=== PATIENT | female | born 2000 | race Caucasian/White ===

== ENCOUNTER 2021-07-29 00:24 | Emergency (ER) | payer OTHER ==
[~2021-07-29] VITALS: Ht 165.1 cm; Wt 65.0 kg
[2021-07-29 00:52] LABS: BILIRUBIN,URINE NEGATIVE (NEGATIVE); CLARITY,URINE SL CLOUDY; COLOR,URINE YELLOW; GLUCOSE, URINE (UA) NEGATIVE (NEGATIVE); KETONES,URINE NEGATIVE (NEGATIVE); LEUKOCYTE ESTERASE ,URINE 2+ (NEGATIVE); NITRITE,URINE NEGATIVE (NEGATIVE); PROTEIN,URINE NEGATIVE (NEGATIVE)
[2021-07-29 00:58] LABS: BACTERIA,URINE TRACE /HPF; WBC,URINE 0-2 /HPF
[2021-07-29 00:59] LABS: AMORPHOUS SEDIMENT,UR LARGE AMOR URATES /LPF
[2021-07-29] MEDS ORDERED: KETOROLAC 30 MG/ML VIAL IVP STA (01:09)
[2021-07-29] MEDS ORDERED: LACTATED RINGERS 1,000 ML IV ONE (01:15)
[2021-07-29 01:35] LABS: BASOPHILS # (AUTO) 0.1 10^3/uL (0.0-0.1); BASOPHILS % (AUTO) 0 % (0-10); EOSINOPHILS # (AUTO) 0.1 10^3/uL (0.0-0.3); EOSINOPHILS % (AUTO) 0 % (0-10); HEMATOCRIT 42 % (35-52); LYMPHOCYTES # (AUTO) 2.3 10^3/uL (1.0-4.0); LYMPHOCYTES % (AUTO) 13 % (12-44); MEAN CORPUSCULAR HEMOGLOBIN 31 pg (25-34); MEAN CORPUSCULAR HGB CONC 33 g/dL (32-36); MEAN CORPUSCULAR VOLUME 95 fL (80-99); MEAN PLATELET VOLUME 9.6 fL (9.0-12.2); MONOCYTES # (AUTO) 1.4 10^3/uL (0.0-1.0); MONOCYTES % (AUTO) 8 % (0-12); NEUTROPHILS # (AUTO) 13.5 10^3/uL (1.8-7.8); NEUTROPHILS % (AUTO) 78 % (42-75); PLATELET COUNT 247 10^3/uL (130-400); WHITE BLOOD COUNT 17.4 10^3/uL (4.3-11.0)
[2021-07-29 01:43] LABS: ALBUMIN 4.4 GM/DL (3.2-4.5); POTASSIUM 3.8 MMOL/L (3.6-5.0)
[2021-07-29 01:44] LABS: CALCIUM 9.5 MG/DL (8.5-10.1)
[2021-07-29 01:45] LABS: TOTAL PROTEIN 7.8 GM/DL (6.4-8.2)
[2021-07-29 01:47] LABS: BILIRUBIN,TOTAL 1.5 MG/DL (0.1-1.0)
[2021-07-29 01:49] LABS: CREATININE SERUM 0.85 MG/DL (0.60-1.30)
--- NOTE | 2021-07-29 01:59 | ED Abdominal Pain ---
General Chief Complaint: Abdominal/GI Problems Stated Complaint: R SIDE / SHOULDER / LOWER ABD PAIN Nursing Triage Note: Pt arrival to ER from home wiht complaint of Right sided abdominal pain/Should Pain since this AM. Pt states that the pain comes and goes. Denies pain or discomfort with urination. Denies trauma or injury. Pain at a 5/10 currently and described as a discomfort. Source of Information: Patient History of Present Illness Date Seen by Provider: Jul 29, 2021 Time Seen by Provider: 00:42 Initial Comments PT ARRIVES VIA POV C/O "EXTREME PAIN" TO RIGHT SIDE OF ABDOMEN--MOSTLY TO RIGHT UPPER QUADRANT, RADIATES TO RIGHT FLANK, AND HAS SOME IN RLQ. ALSO HAS PAIN TO RIGHT SHOULDER/SCAPULA/TRAPEZIUS AREA PAIN BEGAN 0800 ON WAKING ON Friday07/28/21 PAIN IS CONSTANT, BUT VARIES IN INTENSITY. PAIN IS WORSE IF LAYING ON ABDOMEN OR RIGHT SIDE OR ON BACK. BETTER IF LAYING ON LEFT SIDE RATES 5/10 NO NAUSEA/VOMITING PT HAD BM ON FRIDAY, BUT HAS BEEN CONSTIPATED STATES SHE HAD "CHILLS" DURING THE DAY, BUT NEVER TOOK TEMP NO URINARY SYMPTOMS AND IS VOIDING A NORMAL AMOUNT NO PROBLEMS EATING /DRINKING AND LAST FOOD INTAKE WAS AT 1900--CHICK[employer] FRIED RICE. NO HISTORY OF SIMILAR NO INJURY OR UNUSUAL ACTIVITY. NO PRIOR ABDOMINAL SURGERIES OR GI PROBLEMS HAS NOT TAKEN ANYTHING FOR PAIN LMP--ENDED 3 DAYS AGO. NORMAL. NO CONTROL PCP: [facility] Allergies and Home Medications Allergies Coded Allergies: No Known Drug Allergies (Unverified , 07/29/21) Patient Home Medication List Home Medication List Reviewed: Yes Naproxen (Naproxen) 500 Mg Tablet.dr, 500 MG PO BID Prescribed by: REINA PETTIT on 07/29/21307 Nitrofurantoin Monohyd/M-Cryst (Macrobid 100 mg Capsule) 100 Mg Capsule, 1 TAB PO BID Prescribed by: REINA PETTIT on 07/29/21307 Review of Systems Review of Systems Constitutional: no symptoms reported Respiratory: No Symptoms Reported; Denies Shortness of Air Cardiovascular: No Symptoms Reported; Denies Chest Pain Gastrointestinal: See HPI, Abdominal Pain, Constipated; Denies Diarrhea, Denies Nausea, Denies Poor Appetite, Denies Vomiting Genitourinary: No Symptoms Reported Musculoskeletal: see HPI, back pain, other (RIGHT SHOULDER PAIN ) Skin: no symptoms reported; No rash Psychiatric/Neurological: No Symptoms Reported Endocrine: No Symptoms Reported Hematologic/Lymphatic: No Symptoms Reported Past Ahcdtwb-[id number]-Krhtmu Hx Patient Social History Tobacco Use?: No Use of E-Cig and/or Vaping dev: Yes E-Cig or Vaping type used: Nicotine Use of E-Cig and/or Vaping Bhupendra: Current Everyday User Substance use?: No Alcohol Use?: Yes Alcohol type: Beer, Hard Liquor, Wine Alcohol Frequency: Couple times a week Pt feels they are or have been: No Immunizations Up To Date Influenza Vaccine Up-to-Date: No; Not Current Past Medical History Surgery/Hospitalization HX: WISDOM TEETH REMOVED Surgeries: Yes (WISDOM TEETH REMOVED) Respiratory: No Cardiac: No Neurological: No : No Last Menstrual Period: Jul 26, 2021 Reproductive Disorders: No Genitourinary: No Gastrointestinal: No Musculoskeletal: No Endocrine: No HEENT: No Cancer: No Psychosocial: Yes Anxiety, Depression Integumentary: No Blood Disorders: No Physical Exam Vital Signs Vital Signs - First Documented 07/29/21 00:30 Temp 36.7 Pulse 97 Resp 18 B/P (MAP) 137/94 (108) Pulse Ox 97 O2 Delivery Room Air Capillary Refill : Less Than 3 Seconds Height/Weight/BMI Height: '" Weight: lbs. oz. kg; 23.00 BMI Method: General Appearance: WD/WN, no apparent distress, other (LAYING ON LEFT SIDE, TEXTING/PLAYING ON PHONE, DOES NOT APPEAR TO BE IN ANY DISCOMFORT OR DISTRESS. MOVES WITHOUT DIFFICULTY. ) Neck: normal inspection Respiratory: chest non-tender, normal breath sounds, no respiratory distress, no accessory muscle use Cardiovascular: regular rate, rhythm, no murmur Gastrointestinal: normal bowel sounds, soft, no organomegaly, no pulsatile mass; No distended, No guarding, No rebound; tenderness (RUQ TENDERNESS. VERY MILD RLQ AND RIGHT FLANK TENDERNESS. 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, no motor/sensory deficits, alert, normal mood/affect, oriented x 3 Skin: normal color, warm/dry; No rash; tattoos/piercings Progress/Results/Core Measures Results/Orders Lab Results Laboratory Tests Test 07/29/21 00:30 07/29/21 01:24 Range/Units Urine Color YELLOW Urine Clarity SL CLOUDY Urine pH 7.0 5-9 Urine Specific [place] 1.015 L 1.016-1.022 Urine Protein NEGATIVE NEGATIVE Urine Glucose (UA) NEGATIVE NEGATIVE Urine Ketones NEGATIVE NEGATIVE Urine Nitrite NEGATIVE NEGATIVE Urine Bilirubin NEGATIVE NEGATIVE Urine Urobilinogen 2.0 < = 1.0 MG/DL Urine Leukocyte Esterase 2+ H NEGATIVE Urine RBC (Auto) NEGATIVE NEGATIVE Urine RBC NONE /HPF Urine WBC 0-2 /HPF Urine Squamous Epithelial Cells 10-25 H /HPF Urine Crystals PRESENT H /LPF Urine Amorphous Sediment LARGE JULIUS URATES H /LPF Urine Bacteria TRACE /HPF Urine Casts NONE /LPF Urine Mucus LARGE H /LPF Urine Culture Indicated NO Urine Opiates Screen NEGATIVE NEGATIVE Urine Oxycodone Screen NEGATIVE NEGATIVE Urine Methadone Screen NEGATIVE NEGATIVE Urine Propoxyphene Screen NEGATIVE NEGATIVE Urine Barbiturates Screen NEGATIVE NEGATIVE Ur Tricyclic Antidepressants Screen NEGATIVE NEGATIVE Urine Phencyclidine Screen NEGATIVE NEGATIVE Urine Amphetamines Screen NEGATIVE NEGATIVE Urine Methamphetamines Screen NEGATIVE NEGATIVE Urine Benzodiazepines Screen NEGATIVE NEGATIVE Urine Cocaine Screen NEGATIVE NEGATIVE Urine Cannabinoids Screen NEGATIVE NEGATIVE White Blood Count 17.4 H 4.3-11.0 10^3/uL Red Blood Count 4.47 3.80-5.11 10^6/uL Hemoglobin 14.0 11.5-16.0 g/dL Hematocrit 42 35-52 % Mean Corpuscular Volume 95 80-99 fL Mean Corpuscular Hemoglobin 31 25-34 pg Mean Corpuscular Hemoglobin Concent 33 32-36 g/dL Red Cell Distribution Width 12.8 10.0-14.5 % Platelet Count 247 130-400 10^3/uL Mean Platelet Volume 9.6 9.0-12.2 fL Immature Granulocyte % (Auto) 1 % Neutrophils (%) (Auto) 78 H 42-75 % Lymphocytes (%) (Auto) 13 12-44 % Monocytes (%) (Auto) 8 0-12 % Eosinophils (%) (Auto) 0 0-10 % Basophils (%) (Auto) 0 0-10 % Neutrophils # (Auto) 13.5 H 1.8-7.8 10^3/uL Lymphocytes # (Auto) 2.3 1.0-4.0 10^3/uL Monocytes # (Auto) 1.4 H 0.0-1.0 10^3/uL Eosinophils # (Auto) 0.1 0.0-0.3 10^3/uL Basophils # (Auto) 0.1 0.0-0.1 10^3/uL Immature Granulocyte # (Auto) 0.1 0.0-0.1 10^3/uL Neutrophils % (Manual) 75 % Lymphocytes % (Manual) 18 % Monocytes % (Manual) 4 % Band Neutrophils 3 % Stomatocytes MODERATE Sodium Level 138 135-145 MMOL/L Potassium Level 3.8 3.6-5.0 MMOL/L Chloride Level 102 98-107 MMOL/L Carbon Dioxide Level 23 21-32 MMOL/L Anion Gap 13 5-14 MMOL/L Blood Urea Nitrogen 15 7-18 MG/DL Creatinine 0.85 0.60-1.30 MG/DL Estimat Glomerular Filtration Rate 84 BUN/Creatinine Ratio 18 Glucose Level 107 H 70-105 MG/DL Calcium Level 9.5 8.5-10.1 MG/DL Corrected Calcium 9.2 8.5-10.1 MG/DL Total Bilirubin 1.5 H 0.1-1.0 MG/DL Aspartate Amino Transf (AST/SGOT) 17 5-34 U/L Alanine Aminotransferase (ALT/SGPT) 17 0-55 U/L Alkaline Phosphatase 62 40-136 U/L Total Protein 7.8 6.4-8.2 GM/DL Albumin 4.4 3.2-4.5 GM/DL Amylase Level 36 25-125 U/L Lipase 4 L 8-78 U/L My Orders Orders - REINA PETTIT DO Urine Bedside (07/29/21 00:42) Ua Culture If Indicated (07/29/21 00:42) Ed Iv/Invasive Line Start (07/29/21 01:09) Amylase (07/29/21 01:09) Cbc With Automated Diff (07/29/21 01:09) Comprehensive Metabolic Panel (07/29/21 01:09) Drug Screen Stat (Urine) (07/29/21 01:09) Lipase (07/29/21 01:09) Abdomen/Kub 1[place] (07/29/21 01:09) Ct Abd/Pelv W (Appendicitis) (07/29/21 01:09) Ed Iv/Invasive Line Start (07/29/21 01:09) Lactated Ringers (Lr 1000 Ml Iv Solution (07/29/21 01:15) Ketorolac Injection (Toradol Injection) (07/29/21 01:09) Manual Differential (07/29/21 01:24) Iohexol Injection (Omnipaque 350 Mg/Ml 1 (07/29/21 02:30) Ns (Ivpb) (Sodium Chloride 0.9% Ivpb Bag (07/29/21 02:30) Ceftriaxone (Rocephin) (07/29/21 03:15) Medications Given in ED Current Medications Medications Dose Ordered Sig/Alesia Route Start Time Stop Time Status Last Admin Dose Admin Iohexol 80 ml ONCE ONCE IV 07/29/21 02:30 07/29/21 02:31 DC 07/29/21 02:24 80 ML Lactated Ringer's 1,000 ml @ 0 mls/hr Q0M ONCE IV 07/29/21 01:15 07/29/21 01:16 DC 07/29/21 01:24 0 MLS/HR Sodium Chloride 80 ml ONCE ONCE IV 07/29/21 02:30 07/29/21 02:31 DC 07/29/21 02:24 80 ML Vital Signs/I&O 07/29/21 07/29/21 00:30 01:24 Temp 36.7 36.7 Pulse 97 Resp 18 B/P (MAP) 137/94 (108) Pulse Ox 97 O2 Delivery Room Air Blood Pressure Mean: 108 Progress Progress Note : Progress Note GIVEN IV FLUIDS AND TORADOL WITH RELIEF OF PAIN UNEVENTFUL ER STAY DISCUSSED IMPORTANCE OF FOLLOW UP WITH [facility], AND ADVISED THAT SHE MAY NEED ADDITIONAL OUTPATIENT TESTS SUCH ULTRASOUND AND/OR HIDA SCAN IF HER SYMPTOMS PERSIST. Diagnostic Imaging Comments KUB--NO ACUTE PROCESS, PENDING RADIOLOGIST REVIEW CT ABDOMEN/PELVIS--NO ACUTE PROCESS, PER [facility] VIA FAX AT 0301 Reviewed: Reviewed by Me Departure Impression Primary Impression: Right sided abdominal pain Additional Impression: UTI (urinary tract infection) Disposition: 01 HOME, SELF-CARE Condition: Improved Departure-Patient Inst. Decision time for Depature: 03:03 Referrals: NO,LOCAL PHYSICIAN (PCP) Primary Care Physician PATRIZIA GOTTI MD Patient Instructions: Abdominal Pain, Adult ED, Urinary Tract Infection, Adult ED Add. Discharge Instructions: LOTS OF CLEAR LIQUIDS--NO COFFEE, POP OR TEA BLAND DIET--NO SPICY, GREASY/HIGH FAT OR ACIDIC FOODS OR DRINKS FOLLOW UP WITH [facility] ON FRIDAY FOR FURTHER CARE, RETURN TO ER IF WORSE All discharge instructions reviewed with patient and/or family. Voiced understanding. Scripts Naproxen (Naproxen) 500 Mg Tablet.dr 500 MG PO BID, #20 TAB Prov: REINA PETTIT DO 07/29/21 Nitrofurantoin Monohyd/M-Cryst (Macrobid 100 mg Capsule) 100 Mg Capsule 1 TAB PO BID, #20 CAP Prov: REINA PETTIT DO 07/29/21 REINA PETTIT DO Jul 29, 2021 01:59
[2021-07-29 02:01] LABS: BAND NEUTROPHILS 3 %; LYMPHOCYTES % (MANUAL) 18 %; MONOCYTES % (MANUAL) 4 %; NEUTROPHILS % (MANUAL) 75 %; STOMATOCYTES MODERATE
[2021-07-29] MEDS ORDERED: NS 100 ML (IVPB) BAG IV ONE (02:30)
[2021-07-29] MEDS ORDERED: IOHEXOL 350 MG/ML 100 ML (OMNIPAQUE 350) VIAL IV ONE (02:30)
[2021-07-29 02:34] LABS: AMPHETAMINE SCREEN, URINE NEGATIVE (NEGATIVE); BARBITURATE SCREEN URINE NEGATIVE (NEGATIVE); BENZODIAZEPINES SCREEN URINE NEGATIVE (NEGATIVE); CANNABINOID SCREEN, URINE NEGATIVE (NEGATIVE); COCAINE SCREEN URINE NEGATIVE (NEGATIVE); METHADONE STAT NEGATIVE (NEGATIVE); METHAMPHETAMINE SCREEN URINE S NEGATIVE (NEGATIVE); OPIATE SCREEN URINE NEGATIVE (NEGATIVE); OXYCODONE STAT NEGATIVE (NEGATIVE); PROPOXYPHENE STAT NEGATIVE (NEGATIVE); TRICYCLIC ANTIDEPRESSANTS SCRE NEGATIVE (NEGATIVE)
[2021-07-29] MEDS ORDERED: NAPR500T8 PO (03:08)
[2021-07-29] MEDS ORDERED: NITR-65 PO (03:08)
[2021-07-29] MEDS ORDERED: cefTRIAXone 1,000 MG in WATER (STERILE) FOR INJECTION 10 ML IV ONE (03:15)
[2021-07-29 03:21] VITALS: BP 132/82
--- NOTE | 2021-07-29 06:24 | Diagnostic Imaging Report ---
Clinical indication: Patient with right lower quadrant pain. Exam: CT exam of the abdomen and pelvis is performed with 80 cc of Omnipaque 350 IV contrast and oral contrast. Sagittal and coronal reformatted images are created. Auto Exposure Controls were utilized during the CT exam to meet ALARA standards for radiation dose reduction. Comparisons: None. Findings: Visualized lung bases: There is mild bibasilar atelectasis. Liver: Unremarkable. Gallbladder: Unremarkable. Pancreas: Unremarkable. Spleen: Unremarkable. Adrenal glands: Unremarkable. Kidneys/ ureters: Unremarkable. Aorta: Unremarkable. Intraabdominal/ retroperitoneal contents: Unremarkable. Intestines: Unremarkable. Appendix: Unremarkable. Bladder: Unremarkable. Pelvic organs: Unremarkable. Extra abdominal/ pelvis regions: Unremarkable. Abdominal wall: Unremarkable. Bones: Unremarkable. Impression: Unremarkable CT scan of the abdomen and pelvis. Appendix is unremarkable. I agree with [facility] report Dictated by: Dictated on workstation # [id number]
--- NOTE | 2021-07-29 06:25 | Diagnostic Imaging Report ---
Clinical indication: Patient with abdominal pain and right lower quadrant pain. Exam: KUB x-ray. Comparison: None. Findings: There are no focal calcifications overlying the expected regions/ pathways of both kidneys, ureters, and bladder regions. There is a nonobstructed bowel gas pattern. There is no evidence of abdominal free air. There is a 2.0 cm sclerotic area overlying the right femoral neck region likely represents a bone island. Otherwise, the visualized bones and extra abdominal soft tissues are unremarkable. Impression: There is no radiographic evidence for acute abdominal/ pelvic process or urinary tract stones. Dictated by: Dictated on workstation # [id number]
== END 2021-07-29 03:20 | disposition home or self-care (01) ==
LOC: ER 00:26
DX: N39.0 Urinary tract infection, site not specified (principal); R10.11 Right upper quadrant pain; F17.210 Nicotine dependence, cigarettes, uncomplicated
CPT/HCPCS: 36415; 74018; 74177; 80053; 80306; 81000; 82150; 83690; 84703; 85007; 85027; 87088